=== PATIENT | male | born 1960 | race Caucasian/White ===

== ENCOUNTER 2023-05-18 10:23 | Day surgery (SDC) | payer OTHER ==
[~2023-05-18] VITALS: Ht 172.7 cm; Wt 73.0 kg
[~2023-05-18 10:23] MED LIST: CEFUROXIME 1MG/0.1ML INTRACAMERAL INJ As Ordered ONE; CYCLOPENTOLATE 1% OPHTH SOLN 2ML BTL OS SCH; FLURBIPROFEN 0.03% OPHTH SOLN 2.5 ML OS SCH; LIDOCAINE 1% SDV 5ML VIAL As Ordered ONE; LR 1,000 ML IV SCH; PHENYLEPHRINE 2.5% OPHTH SOL 2ML OS SCH; TETRACAINE 0.5% OPHTH SOLN 4ML OS SCH
[2023-05-18] MEDS ORDERED: MIDAZOLAM INJ 2MG/2ML VIAL As Ordered ONE (13:24)
[2023-05-18 14:02] VITALS: BP 135/78; TEMP 97.6; O2SAT 96
== END 2023-05-18 14:23 | disposition home or self-care (01) ==
LOC: M SDC 10:23
PROVIDERS: ATTEND Ophthalmology
DX: H25.12 Age-related nuclear cataract, left eye (principal)
CPT/HCPCS: 66984; J0697; J2250; V2632